=== PATIENT | male | born 2000 | race Caucasian/White ===

== ENCOUNTER 2022-07-14 18:10 | Emergency (ER) | payer BC, SELFPAY ==
[2022-07-14 18:15] VITALS: BP 145/84; PULSE 77; RESP 18; TEMP 36.6; O2SAT 98; BMI 23.1
--- NOTE | 2022-07-14 18:22 | ED_ITS ---
HPI - Extremity Injury (Upper) General Time Seen by Provider: 18:23 Date Seen: 07/14/22 Chief Complaint: Extremity Pain/Injury, Upper Stated Complaint: POSSIBLE BROKEN FINGER - RT PINKY Time Seen by Provider: 07/14/22 18:17 Source: patient and RN notes reviewed Mode of arrival: ambulatory Limitations: no limitations History of Present Illness HPI narrative: Patient is here complaining of right 5th finger pain. He states he cannot straighten it. He injured it playing football prior to arrival, thinks he may have jammed it but is not completely sure what happened. No numbness or tingling. Nothing else was injured. complaint: injury to: right and finger (Fifth finger) Related Data Home Medications Medication Instructions Recorded Confirmed No Known Home Medications 07/14/22 07/14/22 Allergies Allergy/AdvReac Type Severity Reaction Status Date / Time bee pollen Allergy Mild hives Verified 07/14/22 18:21 tide Allergy Mild Hives Uncoded 07/14/22 18:21 Review of Systems Narrative: See HPI Exam Const: Vital Signs, click to edit/add: Vital Signs - 24 hr 07/14/22 18:15 Temperature 97.8 F Pulse Rate [Left P ulse Oximeter] 77 Respiratory Rate 18 Blood Pressure [Le ft Upper Arm] 145/84 H Pulse Oximetry 98 Oxygen Delivery Me thod Room Air Documenting provider has reviewed patient's vital signs: yes Other: 21-year-old male that is alert interactive no apparent distress, ambulatory into the ED of his own accord. His her right 5th finger is slightly flexed at the PIP and the IP joints. He does seem to have some ability to flex and extend but states it is painful. He has normal distal sensation. There is no open wounds. Seems to be tender along the middle phalanx and the IP joint the most. He has a normal nail bed on this finger. Did not attempt to place him through range of motion of this finger, will obtain x-rays 1st. Certainly, clinically on examination there is no joint dislocation. Course Course Hospital Course: Obtain x-ray of his right 5th finger to rule out underlying fracture. Reevaluation(s) Reevaluation #1: Patient is re-evaluated. His x-ray is not showing any fracture. He feels like he cannot fully extend his finger and does seem to be stemming from the PIP joint as mentioned in the radiology note. I can fully extend it but he has pain along the PIP joint when I do so. Reviewed with him the possibility of ligamentous injury. I did put him in a finger splint with as much extension as possible. It was a foam premade finger splint. Time: 19:33 Vital Signs Vital signs: Initial Vital Signs Temperature 97.8 F 07/14/22 18:15 Temperature Source Temporal Artery Scan 07/14/22 18:15 Pulse Rate 77 07/14/22 18:15 Respiratory Rate 18 07/14/22 18:15 Blood Pressure 145/84 H 07/14/22 18:15 Blood Pressure Mean 104 07/14/22 18:15 Blood Pressure Position Sitting 07/14/22 18:15 Pulse Oximetry 98 07/14/22 18:15 Oxygen Delivery Method 07/14/22 18:15 Vital Signs Temperature 97.8 F 07/14/22 18:15 Pulse Rate 77 07/14/22 18:15 Respiratory Rate 18 07/14/22 18:15 Blood Pressure 145/84 H 07/14/22 18:15 Pulse Oximetry 98 07/14/22 18:15 Oxygen Delivery Method 07/14/22 18:15 Temperature 97.8 F 07/14/22 18:15 Pulse Rate 77 07/14/22 18:15 Respiratory Rate 18 07/14/22 18:15 Blood Pressure 145/84 H 07/14/22 18:15 Pulse Oximetry 98 07/14/22 18:15 Oxygen Delivery Method 07/14/22 18:15 MDM - Extremity Injury (Upper) Imaging Data X-ray right 5th finger: Attestation: I have reviewed the pertinent imaging results. My impression: I do not appreciate a fracture on my preliminary read, await Radiology over-read. Radiologist's impression: Patient: MARICRUZ MCLEOD Facility:?[facility] Patient ID:?[id number] Site Patient ID:?[id number]. Site :?[id number] Study:?XRay Extremity Right 5TH DIGIT-07/14/2022 6:35:48 PM Ordering Physician:?Marva Jaffe Final Report: Indication: Marion football injury. Technique: Right small finger 3 views. Comparison: None. Findings: Bones: There is persistent flexion of the small finger at the PIP joint. No acute fracture or dislocation. Joint spaces: Unremarkable. Soft tissues: Unremarkable. Impression: Persistent flexion of the small finger at the PIP joint, may indicate an extensor tendon injury. No acute fracture. Dictated by Nehemias Walters MD @ 07/14/2022 7:18:37 PM (Electronic Signature) Critical Care Time Critical Care Time Critical Care Time: No Discharge Plan Discharge Clinical Impression: Finger injury Condition: Stable Additional Instructions: Need to keep this splint on. For discomfort, can use Tylenol and/or ibuprofen as needed for pain control, follow bottle directions for dosing. You need to be re-evaluated this next week, call the orthopedic office to get scheduled for this. If they have ongoing concerns of a tendon injury, they may want to refer you to a hand specialist. Icing and elevating can help diminish pain and swelling. The phone number for the orthopedic office is [phone]. Prescriptions: No Action No Known Home Medications Stand Alone Forms: [employer] Info Instructions
--- NOTE | 2022-07-14 18:24 | CRLHL7_ITS ---
For Patients: As a result of the Century Cures Act, medical imaging exams and procedure reports are released immediately into your electronic medical record. You may view this report before your referring provider. If you have questions, please contact your health care provider. Indication: Marion football injury. Technique: Right small finger 3 views. Comparison: None. Findings: Bones: There is persistent flexion of the small finger at the PIP joint. No acute fracture or dislocation. Joint spaces: Unremarkable. Soft tissues: Unremarkable. Impression: Persistent flexion of the small finger at the PIP joint, may indicate an extensor tendon injury. No acute fracture. Dictated by Nehemias Walters MD @ 07/14/2022 7:18:37 PM (Electronically Signed)
[2022-07-14 20:01] VITALS: BP 145/84; PULSE 77; RESP 18; TEMP 36.6
== END 2022-07-14 20:15 | disposition home or self-care (01) ==
LOC: ED 20:08
PROVIDERS: Emergency Provider Family Medicine
DX: S60.946A Unspecified superficial injury of right little finger, initial encounter (principal); Y93.61 Activity, american tackle football
CPT/HCPCS: 29130; 73140; 99282; 99283

== ENCOUNTER 2024-06-22 13:37 | Emergency (ER) | payer BC, SELFPAY ==
[2024-06-22 13:42] VITALS: BP 143/68; PULSE 75; RESP 18; TEMP 36.4; O2SAT 97; BMI 24.7
--- NOTE | 2024-06-22 15:27 | ED.LOWEXIN ---
HPI - Extremity Injury (Lower) General Date Seen: 06/22/24 Chief Complaint: Extremity Pain/Injury, Lower Stated Complaint: left hamstring injury Time Seen by Provider: 06/22/24 15:05 Source: patient Mode of arrival: ambulatory Limitations: no limitations History of Present Illness HPI Narrative: Patient is a 23-year-old male presenting for left hamstring pain that occurred yesterday as he was running. States felt the pulling sensation in his medial aspect of the hamstring. Symptoms have been improving since yesterday. No other injuries noted. Has been able to walk on it. Pain is managed well with an 0. No other concerns noted. Denies any numbness. Has full range of motion of his left lower extremity. Related Data Home Medications ?Medication ?Instructions ?Recorded ?Confirmed No Known Home Medications 07/14/22 06/22/24 Allergies Allergy/AdvReac Type Severity Reaction Status Date / Time bee pollen Allergy Mild hives Verified 06/22/24 13:44 tide Allergy Mild Hives Uncoded 07/14/22 18:21 Review of Systems Narrative: Pertinent systems reviewed and were negative unless stated in HPI PFSH PFSH Social History Smoking Status: Never smoker Do you use any of these nicotine containing products: None Second hand tobacco smoke exposure: No How often do you have a drink containing alcohol: never AUDIT-C Alcohol total score: 0 Non-prescribed substance use: denies use Exam Narrative: Exam Narrative: Const: Well-nourished, Well-developed, in mild distress Eyes: PERRL, no conjunctival injection, and symmetrical lids HENT: Atraumatic external nose and ears. Moist mucous membranes. MSK:Extremities w/o deformity, Normal Active ROM, with no tenderness to palpation noted to him string. No bruising noted. Skin: Warm, Dry. No rashes or lesions. Neuro: Normal Muscle tone, No focal neurological deficits. Psych: Awake, Alert, & Oriented x3. Appropriate mood and affect. Const: Vital Signs, click to edit/add: Vital Signs - 24 hr 06/22/24 13:42 Temperature 97.6 F Pulse Rate [Pulse Oximeter] 75 Respiratory Rate 18 Blood Pressure [Ri ght Upper Arm] 143/68 H Pulse Oximetry 97 Oxygen Delivery Me thod Room Air Course Vital Signs Vital signs: Initial Vital Signs Temperature 97.6 F 06/22/24 13:42 Temperature Source Temporal Artery Scan 06/22/24 13:42 Pulse Rate 75 06/22/24 13:42 Pulse Rhythm Regular 06/22/24 13:42 Respiratory Rate 18 06/22/24 13:42 Blood Pressure 143/68 H 06/22/24 13:42 Blood Pressure Mean 93 06/22/24 13:42 Blood Pressure Position Sitting 06/22/24 13:42 Pulse Oximetry 97 06/22/24 13:42 Oxygen Delivery Method Room Air 06/22/24 13:42 Vital Signs Temperature 97.6 F 06/22/24 13:42 Pulse Rate 75 06/22/24 13:42 Respiratory Rate 18 06/22/24 13:42 Blood Pressure 143/68 H 06/22/24 13:42 Pulse Oximetry 97 06/22/24 13:42 Oxygen Delivery Method Room Air 06/22/24 13:42 Temperature 97.6 F 06/22/24 13:42 Pulse Rate 75 06/22/24 13:42 Respiratory Rate 18 06/22/24 13:42 Blood Pressure 143/68 H 06/22/24 13:42 Pulse Oximetry 97 06/22/24 13:42 Oxygen Delivery Method Room Air 06/22/24 13:42 MDM - Extremity Injury (Lower) MDM Narrative Medical decision making narrative: Patient is a 23-year-old male with left hamstring pain. He has full range of motion the hamstring 2 and is neurovascular intact. He is able to ambulate and doing well. If not seeing any signs of some major tear requiring more immediate management. He can be discharged at this time it with an García wrap. Will follow-up with orthopedics if symptoms persist. Given return precautions informed him that should I do no running or sports until symptoms fully resolve. Discharge Plan Discharge Clinical Impression: Hamstring strain Qualifiers: Encounter type: initial encounter Laterality: left Qualified Code(s): S76.312A - Strain of muscle, fascia and tendon of the posterior muscle group at thigh level, left thigh, initial encounter Patient Disposition: Home, Self-Care Condition: Stable Instructions: Hamstring Exercises (ED) Additional Instructions: If symptoms persist over the next few weeks Follow-up with [facility]. Call them at . Return for new worsening symptoms. Take Tylenol and ibuprofen for pain. Prescriptions: No Action No Known Home Medications Follow Up/Referrals: Provider,Not a Local [Primary Care Provider] - Stand Alone Forms: [employer] Info Instructions
== END 2024-06-22 15:41 | disposition home or self-care (01) ==
LOC: ED 15:39
PROVIDERS: Emergency Provider Student in an Organized Health Care Education/Training Program
DX: S86.112A Strain of other muscle(s) and tendon(s) of posterior muscle group at lower leg level, left leg, initial encounter (principal); Y93.02 Activity, running
CPT/HCPCS: 99282; 99283

== ENCOUNTER 2025-01-18 21:51 | Emergency (ER) | payer BC, SELFPAY ==
--- OUTSIDE RECORDS SUMMARY | 2025-01-18 21:53 | XMS_ITS | Patient Health Record ---
Author Organization [facility] Health Services Address [address] [place] [address] Care Team Providers Care Line Up Machine Operator Name Role Phone Unknown, Unknown Primary Care Provider Unavailab le Reason For Referral No Information Social History Tobacco Use: Social History Observation Description Date Details (start date - stop date) Never Smoker NA - NA Sex Assigned At : Social History Observation Description Sex Assigned At Male Alcohol Screen Question Answer Notes Did you have a drink containing alcohol in the p ast year? No Points 0 Tobacco Screen Question Answer Notes Are you a: nonsmoker Plan Of Treatment No Information Insurance Providers Payer Name Payer Address Payer Phone Subscriber Number Group Number Insured Name Patient Relationship to Insured Coverage Start Date Coverage End Date ANGELINA WONG [place] [address] [place] [address] [id number] Ashish Ryder Self - patient is the insured Medical (General) History Surgical History Surgery Date(Month/Year)
--- NOTE | 2025-01-18 22:00 | CRLHL7_ITS ---
For Patients: As a result of the Century Cures Act, medical imaging exams and procedure reports are released immediately into your electronic medical record. You may view this report before your referring provider. If you have questions, please contact your health care provider. Indication: Injury of right ankle. Technique: Right ankle 3 views. Comparison: None. Findings: Bones: Alignment is normal. No fractures or bone lesions. Joint spaces: Unremarkable. Soft tissues: Mild ankle soft tissue swelling. Impression: No acute fracture or dislocation. Dictated by Jairo Rivera MD @ 01/19/2025 12:08:14 AM (Electronically Signed)
[2025-01-18 22:19] VITALS: BP 156/90; PULSE 64; RESP 16; TEMP 37.1; O2SAT 98; BMI 25.0
--- NOTE | 2025-01-18 23:08 | ED.GENADULT ---
HPI - General Adult General Date Seen: 01/18/25 Chief complaint: Extremity Pain/Injury, Lower Stated complaint: Right ankle basketball injury/break Time Seen by Provider: 01/18/25 22:18 History of Present Illness HPI narrative: Pleasant 24-year-old male [facility] February presenting to the ER today with right ankle pain and swelling. He injured his ankle this evening just prior to arrival here in the ER. He was playing basketball and when he came down for rebound he apparently was knocked by another player and ?had his leg knocked out from under him?. Describes landing with an inversion/Edward twisting injury to his right foot and ankle. He audible E heard and felt a pop in his ankle and fell to the ground. He was quite painful and got lightheaded. He did not black out or hit his head. He developed pain and swelling over the lateral malleolus and has been having difficulty bearing weight so came here to the ER. No other injury in the fall. He did not hurt his hip or knee. No associated numbness or weakness in his foot. Related Data Home Medications ?Medication ?Instructions ?Recorded ?Confirmed No Known Home Medications 07/14/22 06/22/24 Allergies Allergy/AdvReac Type Severity Reaction Status Date / Time bee pollen Allergy Mild hives Verified 06/22/24 13:44 tide Allergy Mild Hives Uncoded 07/14/22 18:21 [facility] Social History Smoking Status: Never smoker Do you use any of these nicotine containing products: None Second hand tobacco smoke exposure: No How often do you have a drink containing alcohol: never AUDIT-C Alcohol total score: 0 Non-prescribed substance use: denies use Exam Narrative: Exam Narrative: Constitutional: Appears well-developed and well-nourished. Active. Non-toxic appearing. Very polite. HENT: Head: Atraumatic. No signs of injury. Nose: No nasal discharge. Mouth/Throat: Mucous membranes are moist. Pharynx is normal. Tonsils symmetric. Uvula midline. Airway patent. Eyes: Conjunctivae normal and EOM are normal. Pupils are equal, round, and reactive to light. Right eye exhibits no discharge. Left eye exhibits no discharge. No icterus. Neck: Normal range of motion. Neck supple. No adenopathy. No stridor. Cardiovascular: Normal rate and regular rhythm. No murmur heard. No murmurs, rubs, or gallops. Brisk distal capillary refill . Normal DP and PT pulses. Pulmonary/Chest: Effort normal. No stridor. No respiratory distress. Musculoskeletal: Upper extremities uninjured. Pelvis nontender. Normal range of motion in his left lower extremity.. No edema. No tenderness. No deformity. Right lower extremity: Hip, thigh, quads, hamstring are normal. Knee normal. No tenderness over the proximal fibula or tibia. Gastrocnemius and Achilles are nontender. Tibial spine nontender. Ankle: Marked swelling and on the right the lateral malleolus. Medial malleolus nontender. Foot, normal inspection. No tenderness over the calcaneus, mid foot including the base of the 5th metatarsal, forefoot and toes are nontender. Intact distal toe wiggling. Neurological: Alert. Normal strength. No cranial nerve deficit or sensory deficit. Coordination normal. GCS eye subscore is 4. GCS verbal subscore is 5. GCS motor subscore is 6. Skin: Skin is warm. No rash noted. Const: Vital Signs, click to edit/add: Vital Signs - 24 hr 01/18/25 22:19 01/18/25 23:20 01/18/25 23:41 Temperature 98.7 F 98.7 F 98.7 F Pulse Rate [Pulse Oximeter] 64 68 68 Respiratory Rate 16 16 16 Blood Pressure [Ri t Upper Arm] 156/90 H 125/74 125/74 Pulse Oximetry 98 98 Oxygen Delivery Me thod Room Air Room Air Course Vital Signs Vital signs: Initial Vital Signs Temperature 98.7 F 01/18/25 22:19 Temperature Source Temporal Artery Scan 01/18/25 22:19 Pulse Rate 64 01/18/25 22:19 Respiratory Rate 16 01/18/25 22:19 Blood Pressure 156/90 H 01/18/25 22:19 Blood Pressure Mean 112 H 01/18/25 22:19 Blood Pressure Position Sitting 01/18/25 22:19 Pulse Oximetry 98 01/18/25 22:19 Oxygen Delivery Method Room Air 01/18/25 22:19 Vital Signs Temperature 98.7 F 01/18/25 22:19 Pulse Rate 64 01/18/25 22:19 Respiratory Rate 16 01/18/25 22:19 Blood Pressure 156/90 H 01/18/25 22:19 Pulse Oximetry 98 01/18/25 22:19 Oxygen Delivery Method Room Air 01/18/25 22:19 Temperature 98.7 F 01/18/25 23:41 Pulse Rate 68 01/18/25 23:41 Respiratory Rate 16 01/18/25 23:41 Blood Pressure 125/74 01/18/25 23:41 Pulse Oximetry 98 01/18/25 23:20 Oxygen Delivery Method Room Air 01/18/25 23:20 Medical Decision Making MDM Narrative Medical decision making narrative: This patient presents for evaluation of right ankle pain. Signs and symptoms are consistent with an ankle sprain affecting the lateral malleolus. There are no signs of fracture on radiograph. The patients neurovascular status is normal. Knee exam is normal. I don't think this is a Maisonneuve injury or a intraosseous ligament injury based on the location of tenderness. A head to toe trauma exam is otherwise negative; the likelihood of other serious sequelae of trauma (spine, head, chest, abdomen, other extremities, pelvis) is low. Plan is for protected weightbearing, RICE treatment with ice 15-20 minutes every 3 hours, and an bracing. Patient will advance weightbearing and follow-up in 2-4 days. They will begin gentle ROM exercises. Precautions for return reviewed and questions answered. Discharge Plan Discharge Clinical Impression: Ankle sprain and strain Patient Disposition: Home, Self-Care Instructions: Ankle Sprain (DC), Crutch Instructions (ED), Walking Boot (ED) Additional Instructions: As we discussed, to help treat pain you can use Tylenol or ibuprofen as needed. Use an ice pack for 20 minutes at a time every few hours to help reduce pain and swelling. Use the ankle brace and crutches to help keep weight off and immobilize her ankle for the next couple of days. As her ankle starts to feel better you can start bearing more weight on it and, of the ankle boot. Once start to get better start [id number] exercises gently doing small circles with her ankle. If your ankle is not substantially improved within 5-6 days, please recheck with your doctors, [facility], or with [facility]. To schedule an ER follow-up appointment with the orthopedic clinic you can call [phone]. Good luck. Remember if you have any trouble especially worsening or severe pain in her ankle, numbness in your foot, or other problems, please come back to the ER right away. Prescriptions: No Action No Known Home Medications Follow Up/Referrals: Provider,Not a Local [Primary Care Provider] - Stand Alone Forms: [employer] Info Instructions
[2025-01-18 23:20] VITALS: BP 125/74; PULSE 68; RESP 16; TEMP 37.1; O2SAT 98
--- OUTSIDE RECORDS SUMMARY | 2025-01-18 23:27 | XMS_ITS | Clinical Summary ---
Author Organization [facility] Address [address] [facility] [address] [place] [address] Care Team Providers Care Second Hand Paper Machine Name Role Phone Christina Diaz MD Primary Care Provider + Allergies Active Allergy Reactions Criticality Noted Date Comments Bee Venom Protein (Honey Bee) 2022 Medications Medication Sig Dispensed Refills Start Date End Date Status EPINEPHrine 0.3 mg/0.3 mL Auto-Injector Inject 1 kit into the muscle once as needed. Inject 0.3 mL IM once as needed for allergic reaction (Throat tight, difficulty breathing). Call 911 as directed. Active atovaquone-proguani L (Malarone) 250-100 mg tablet Take 1 tablet by mouth daily. Start day before travel to risk area, daily while there & for 7 days after. Take with food. 100 tablet 09/05/2023 Active Active Problems No known active problems Immunizations Name Administration Dates Next Due Tdap (Adacel, Boostrix) 09/05/2023 Typhoid, VICP 09/05/2023 Social History Tobacco Use Types Packs/Day Years Used Date Smoking Tobacco: Never Smokeless Tobacco: Never Tobacco Cessation:Counseling Given: Not Answered Sex and Gender Information Value Date Recorded Sex Assigned at Not on file Gender Identity Not on file Sexual Orientation Not on file Plan of Treatment Health Maintenance Due Date Last Done Comments HPV vaccine (1 - Male 3-dose series) 2017 HIV screen 2020 Hepatitis C Screening 2020 Hepatitis B vaccine (0-59 yrs) and Risk (1) 2021 Covid-19 Vaccine (1 - 2023- season) 2024 Influenza (Flu) vaccine (1 o f 1 - Influenza standard series) 05/30/2024 Tetanus/Diphtheria/Pertussis Vaccines (2 - Td or Tdap) 09/05/2033 09/05/2023 Care Teams Second Hand Paper Machine Relationship Specialty Start Date End Date Christina Diaz MD [address] [place] [address] PCP - General Family Medicine 12/03/16
[2025-01-18 23:41] VITALS: BP 125/74; PULSE 68; RESP 16; TEMP 37.1
== END 2025-01-18 23:42 | disposition home or self-care (01) ==
LOC: ED 23:26
PROVIDERS: Emergency Provider Emergency Medicine
DX: S93.401A Sprain of unspecified ligament of right ankle, initial encounter (principal); X50.9XXA Other and unspecified overexertion or strenuous movements or postures, initial encounter; Y93.67 Activity, basketball
CPT/HCPCS: 73610; 99282; 99283